=== PATIENT | male | born 1980 | race Caucasian/White ===

== ENCOUNTER 2016-08-19 23:18 | Emergency (ER) | payer SELFPAY ==
[~2016-08-19] VITALS: Ht 182.9 cm; Wt 109.0 kg
[~2016-08-19 23:18] MED LIST: SUBO2MIS SL
[2016-08-19 23:20] VITALS: BP_SYST 165; BP_SYST 168; BP_DIAS 113; BP_DIAS 116; PULSE 76; RESP 16; TEMP 97.4; O2SAT 98
[2016-08-20] MEDS ORDERED: FLUORESCEIN SOD 1 MG STRIP EACH EYE ONE
[2016-08-20] MEDS ORDERED: PROPARACAINE HCL 0.5% OPHT SOLN 15 ML BTL EACH EYE ONE
--- NOTE | 2016-08-20 00:58 | PD ---
HPI Chief Complaint: Hypertension Time Seen by Provider: 23:44 Travel History International Travel<30 days: No Contact w/Intl Traveler<30days: No Traveled to known affect area: No History of Present Illness HPI The patient is 35 year old male who presents to the [facility] emergency department with a history of 2 concerns. #1 the patient reports that he has a history of hypertension for years and is not currently on any medication for it. He reports that he cannot recall what he was on previously. The patient reports that he does not have insurance currently, however he has a new job and will be getting insurance soon. The patient denies having a primary care physician. 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 He reports that he wears goggles and a mask, however he is concerned that a piece of glass may have gotten into his eye. He did not have any pain at the time, however night while sleeping he began to have discomfort in the right eye. He has been rubbing the eye. He reports it has been tearing, itching, and irritated. He denies being around anyone with conjunctivitis recently. The patient denies having any recent fevers, cough, congestion, neck pain, chest pain, shortness of breath, abdominal pain, vomiting , diarrhea, urinary symptoms, or neurologic symptoms. FOR[facility]LY [facility], LATER [facility] Past Medical History Narrative Medical The patient's past medical history is significant for hypertension, history of bipolar disorder. Cardiovascular Problems: Yes (HTN--RAN OUT OF MEDS) Diminished Hearing: No Hypertension: Yes Immunizations Current: Yes Tetanus Vaccination: Unknown Influenza Vaccination: No Past Surgical History Narrative Surgical The patient's past surgical history is unremarkable. Social History Alcohol Use: Yes Tobacco Use: Yes (few-1ppd ) Substance Use: Yes Allergies-Medications (Allergen,Severity, Reaction): Coded Allergies: Dimetapp (Verified Allergy, Severe, Hives, 07/25/16) Reported Meds & Prescriptions Reported Meds & Active Scripts Active Reported Suboxone Sublingual Film (Buprenorphine-Naloxone Sublingual Film) 2-0.5 Mg Film 1 Film SL DAILY Unique ID number required: Review of Systems Except as stated in HPI: all other systems reviewed are Neg General / Constitutional: No: Fever Eyes: Positive: Pain, Tearing, Other (itchy), No: Visual changes HENT: No: Headaches Cardiovascular: No: Chest Pain or Discomfort Respiratory: No: Shortness of Breath Gastrointestinal: No: Abdominal Pain Genitourinary: No: Dysuria Musculoskeletal: No: Pain Skin: No Rash Neurologic: No: Weakness Psychiatric: No: Depression Endocrine: No: Polydipsia Hematologic/Lymphatic: No: Easy Bruising Physical Exam Narrative General: The patient is a well-developed well-nourished male in no acute distress. Head and Neck exam: Head is normocephalic atraumatic. Eyes: EOMI, pupils are equal round and reactive to light. The patient on examination of the right eye is noted to have some swelling of the upper lid. The patient's upper and lower eyelid was everted. No foreign body was noted. There is irritation along the lateral/temporal aspect of the bulbar conjunctiva. On floor seen evaluation after topical numbing with proparacaine the patient had no evidence of ulcer, dendrite formation, or abrasion on either eye. Nose: Midline septum with pink mucous membranes Mouth: Dentition unremarkable. Moist mucus membranes. Posterior oropharynx is not erythematous. No tonsillar hypertrophy. Uvula midline. Airway patent. Neck: No palpable lymphadenopathy. No nuchal rigidity. No thyromegaly. Cardiovascular: Regular rate and rhythm without murmurs, gallops, or rubs. Lungs: Clear to auscultation bilaterally. No wheezes, rhonchi, or rales. Abdomen: Soft, without tenderness to palpation in all 4 quadrants of the abdomen. No guarding, rebound, or rigidity. Normal bowel sounds are audible. Extremities: No clubbing, cyanosis, or edema. Neurologic Exam: Grossly nonfocal. Skin Exam: No rash noted. Intact skin that is warm and dry. Data Data Last Documented VS Vital Signs Date Time Temp Pulse Resp B/P Pulse Ox O2 Delivery O2 Flow Rate FiO2 08/19/16 23:20 97.4 76 16 168/116 98 165/113 Orders Proparacaine 0.5% Opth Soln (Alcaine 0.5 (08/20/16 00:00) Fluorescein Strip (Jzcef-J-Daucch A.T.) (08/20/16 00:00) [facility] Medical Decision Making Medical Screen Exam Complete: Yes Emergency Medical Condition: Yes Medical Record Reviewed: Yes Differential Diagnosis Conjunctivitis, versus corneal abrasion, versus allergic conjunctivitis, versus foreign body with abrasion of the bulbar conjunctiva Narrative Course During the course of the patients emergency department visit, the patients history, examination, and differential diagnosis were reviewed with the patient. The patient had his eye topically anesthetized with proparacaine bilaterally. Floor seen was then applied. A black light was used to assess the patient's eyes. He has extraocular motion is intact. The patient has no foreign body noted. The patient had no evidence of ulceration or abrasion. The patient did however on eversion of the upper lid lateral aspect have an area of irritation possibly related to a foreign body that was previously removed with irrigation by him. The patient will be discharged home with a prescription for tobramycin ophthalmic solution, and a prescription for a blood pressure medication as he reports a history of hypertension. Diagnosis Primary Impression: Hypertension Qualified Code: I15.9 - Secondary hypertension Additional Impression: Abrasion of conjunctiva, right Qualified Code: S05.01XA - Abrasion of conjunctiva, right, initial encounter Referrals: Belle Tapia MD 2 days Patient Instructions: Conjunctivitis (ED), General Instructions Departure Forms: Tests/Procedures Med/Other Pt SpecificInfo: Prescription(s) given Scripts Tobramycin Opth Drops 0.3 % Soln2 Drop EACH EYE Q4H #1 BOTTLE Ref 0 Prov:Suzan Botello MD 08/20/16 Lisinopril 10 Mg Tab10 Mg PO DAILY #30 TAB Ref 0 Prov:Suzan Botello MD 08/20/16 Disposition: DISCHARGE HOME Condition: Stable Suzan Botello MD Aug 20, 2016 00:58
[2016-08-20] MEDS ORDERED: LISI10TA3 PO ×2 (01:21→11:51)
[2016-08-20] MEDS ORDERED: AK-T0.3S EACH EYE ×2 (01:21→11:51)
== END 2016-08-20 01:56 | disposition home or self-care (01) ==
LOC: NEPE 23:18
DX: I10 Essential (primary) hypertension (principal); S05.01XA Injury of conjunctiva and corneal abrasion without foreign body, right eye, initial encounter; X58.XXXA Exposure to other specified factors, initial encounter; Y93.H3 Activity, building and construction; Y99.0 Civilian activity done for income or pay
CPT/HCPCS: 99283

== ENCOUNTER 2016-08-25 12:24 | Emergency (ER) | payer SELFPAY ==
[~2016-08-25] VITALS: Ht 182.9 cm; Wt 100.0 kg
[~2016-08-25 12:24] MED LIST changes: +AK-T0.3S EACH EYE; +LISI10TA3 PO
[2016-08-25] MEDS ORDERED: PROPARACAINE HCL 0.5% OPHT SOLN 15 ML BTL RIGHT EYE ONE (13:15)
--- NOTE | 2016-08-25 13:36 | PD ---
HPI Chief Complaint: Eye Problems/Injury Time Seen by Provider: 13:33 Travel History International Travel<30 days: No Contact w/Intl Traveler<30days: No Traveled to known affect area: No History of Present Illness HPI Patient comes in complaining of continued right eye pain and irritation after getting a piece of glass and it approximately a week ago. Patient states he was seen here previously for this prescribed antibiotic eyedrops that he had to wait for his pharmacy to order them and has been using them in both eyes. Patient states he ran out today. Patient states that symptoms in the right eye has not got any better and occasionally feels it to have got worse. Patient states he has not followed up with account receivable associate yet. Denies any change in his vision. Patient states that he did use an eye patch that he bought over-the -counter initially with no improvement of his symptoms. PFSH Past Medical History Cardiovascular Problems: Yes (HTN--RAN OUT OF MEDS) Diminished Hearing: No Hypertension: Yes Immunizations Current: Yes Tetanus Vaccination: < 5 Years Influenza Vaccination: No Social History Alcohol Use: Yes Tobacco Use: Yes (< 1PPD) Substance Use: Yes Allergies-Medications (Allergen,Severity, Reaction): Coded Allergies: Dimetapp (Verified Allergy, Severe, Hives, 08/25/16) Reported Meds & Prescriptions Reported Meds & Active Scripts Active Erythromycin Opth Oint 5 Mg/Gm Oint 1 Applic RIGHT EYE QID 7 Days Bactrim DS (Sulfamethoxazole-Trimethoprim) 800-160 Mg Tab 1 Tab PO BID Tobramycin Opth Drops 0.3 % Soln 2 Drop EACH EYE Q4H Lisinopril 10 Mg Tab 10 Mg PO DAILY Reported Suboxone Sublingual Film (Buprenorphine-Naloxone Sublingual Film) 2-0.5 Mg Film 1 Film SL DAILY Unique ID number required: Review of Systems Except as stated in HPI: all other systems reviewed are Neg Physical Exam Narrative GENERAL: Well-developed, overly nourished, in no acute distress, and non-ill appearing. SKIN: Warm and dry. HEAD: Atraumatic. Normocephalic. EYES: Pupils equal and round. EOMI. No scleral icterus. Injection with clear drainage right eye. Mild erythematous bilateral periorbital right greater than left. There is no fluctuation or crepitus. ENT: No nasal bleeding or discharge. Mucous membranes pink and moist. NECK: Trachea midline. Supple. No nuclear rigidity. RESPIRATORY: No accessory muscle use. No respiratory distress. MUSCULOSKELETAL: No obvious deformities. No clubbing. No cyanosis. No edema. Full range of motion. NEUROLOGICAL: Awake and alert. No obvious cranial nerve deficits. Motor grossly within normal limits. Normal speech. PSYCHIATRIC: Appropriate mood and affect; insight and judgment normal. Data Data Orders Proparacaine 0.5% Opth Soln (Alcaine 0.5 (08/25/16 13:15) Basic Metabolic Panel (Bmp) (08/25/16 13:10) Iv Access Insert/Monitor (08/25/16 13:10) Complete Blood Count With Diff (08/25/16 13:37) Labs Laboratory Tests Test 08/25/16 08/25/16 13:20 13:54 Sodium Level 140 MEQ/L Potassium Level 4.4 MEQ/L Chloride Level 105 MEQ/L Carbon Dioxide Level 30.0 MEQ/L Anion Gap 5 MEQ/L Blood Urea Nitrogen 13 MG/DL Creatinine 0.89 MG/DL Estimat Glomerular Filtration 96 ML/MIN Rate Random Glucose 107 MG/DL Calcium Level 8.8 MG/DL White Blood Count 6.1 TH/MM3 Red Blood Count 5.19 MIL/MM3 Hemoglobin 15.5 GM/DL Hematocrit 44.9 % Mean Corpuscular Volume 86.4 FL Mean Corpuscular Hemoglobin 29.9 PG Mean Corpuscular Hemoglobin 34.6 % Concent Red Cell Distribution Width 13.9 % Platelet Count 177 TH/MM3 Mean Platelet Volume 9.5 FL Neutrophils (%) (Auto) 59.4 % Lymphocytes (%) (Auto) 28.9 % Monocytes (%) (Auto) 8.7 % Eosinophils (%) (Auto) 2.4 % Basophils (%) (Auto) 0.6 % Neutrophils # (Auto) 3.6 TH/MM3 Lymphocytes # (Auto) 1.7 TH/MM3 Monocytes # (Auto) 0.5 TH/MM3 Eosinophils # (Auto) 0.1 TH/MM3 Basophils # (Auto) 0.0 TH/MM3 CBC Comment DIFF FINAL Differential Comment MDM Medical Decision Making Medical Screen Exam Complete: Yes Emergency Medical Condition: Yes Differential Diagnosis Periorbital cellulitis, orbital cellulitis, conjunctivitis, other Narrative Course Patient was seen and examined. Initial laboratory and radiological studies were ordered. Patient decided he was not able to wait to obtain the CT secondary to issues with his ride home and has decided to leave AGAINST MEDICAL ADVICE. Patient understands the potential complications of not getting a CAT scan including but not limited to loss of vision, loss of viable, , worsening infection, permanent disability. AMA: The risks of leaving against medical advice without further evaluation treatment were discussed with the patient. These risks include cardiac dysfunction, cardiac dysrhythmia, possible heart attack, possible stroke or . The patient indicated understanding of these risks and appeared to have the capacity to make this decision. Although the patient did leave against medical advise patient was given prescription for antibiotics to cover periorbital cellulitis as well as conjunctivitis and was instructed to return to the emergency department immediately if symptoms get worse and to follow up with account receivable associate. Patient verbalized understanding states he will come back tomorrow to have the CT done after work. Procedures Procedure Narrative Verbal consent was obtained. Affected eye was anesthetized using proparacaine. Fluorescein staining and Wood lamp exam performed with no uptake seen. Negative Alyssa sign. No hyphema, hyperemia, or rust ring. Eyelid was everted with no foreign body noted. No tenderness bilateral temporal arteries to palpation. Patient tolerated procedure well. Diagnosis Primary Impression: Left against medical advice Med/Other Pt SpecificInfo: Prescription(s) given Scripts Erythromycin Opth Oint 5 Mg/Gm Oint1 Applic RIGHT EYE QID 7 Days Ref 0 Prov:Maria Elena Pinedo MD 08/25/16 Sulfamethoxazole-Trimethoprim (Bactrim DS)800-160 Mg Tab1 Tab PO BID #20 TAB Ref 0 Prov:Maria Elena Pinedo MD 08/25/16 Disposition: 07 AGAINST MEDICAL ADVICE Condition: Stable Guy Carlos Aug 25, 2016 13:36
[2016-08-25 13:48] LABS: POTASSIUM 4.4 MEQ/L (3.5-5.1)
[2016-08-25 14:10] LABS: AUTOMATED NEUTROPHIL # 3.6 TH/MM3 (1.8-7.7); BASOPHIL % 0.6 % (0.0-2.0); EOSINOPHIL # 0.1 TH/MM3 (0-0.4); EOSINOPHIL % 2.4 % (0.0-4.0); HEMATOCRIT 44.9 % (39.0-51.0); HEMO FLAGS DIFF FINAL; LYMPH % 28.9 % (9.0-44.0); LYMPHOCYTE # 1.7 TH/MM3 (1.0-4.8); MEAN CELL VOLUME 86.4 FL (80.0-100.0); MEAN CORPUSCULAR HEMOGLOBIN 29.9 PG (27.0-34.0); MEAN CORPUSCULAR HGB CONC 34.6 % (32.0-36.0); MONO % 8.7 % (0.0-8.0); NEUT % 59.4 % (16.0-70.0); PLATELET COUNT 177 TH/MM3 (150-450); RED BLOOD COUNT 5.19 MIL/MM3 (4.50-5.90); RED CELL DISTRIBUTION WIDTH 13.9 % (11.6-17.2); WHITE BLOOD COUNT 6.1 TH/MM3 (4.0-11.0)
[2016-08-25] MEDS ORDERED: ERYTOIN10 RIGHT EYE (14:13)
[2016-08-25] MEDS ORDERED: BACT800T5 PO (14:13)
== END 2016-08-25 14:10 | disposition left against medical advice (07) ==
LOC: NEPB 12:24
DX: L03.213 Periorbital cellulitis (principal); H10.9 Unspecified conjunctivitis; I10 Essential (primary) hypertension; F17.210 Nicotine dependence, cigarettes, uncomplicated
CPT/HCPCS: 80048; 85025; 99283